=== PATIENT | female | born 1970 | race Caucasian/White ===

== ENCOUNTER 2020-11-10 09:13 | Emergency (ER) | payer OTHER, SELFPAY ==
[2020-11-10 09:24] VITALS: BP 143/93; PULSE 73; RESP 16; TEMP 36.7; O2SAT 99
--- NOTE | 2020-11-10 09:36 | ED.EYEPROB ---
HPI - Eye Problem General Chief complaint: Eye Problems Stated complaint: Left Eye Pain Time Seen by Provider: 11/10/20 09:45 Source: patient Mode of arrival: ambulatory Limitations: no limitations History of Present Illness HPI Narrative: Pastora Zavala is a 50 yo female with no PMH who comes to [facility] with pain in her left eye that started yesterday. She states that she had some swelling in her eyelid she says she is getting a stye but pain increased dramatically over the the last evening this morning is unable to open her eye in any kind of light, she states she took a shower in the dark, and has difficulty driving to work even with sunglasses this morning, watering profusely Related Data Allergies Allergy/AdvReac Type Severity Reaction Status Date / Time No Known Allergies Allergy Unknown Verified 01/18/15 10:21 Review of Systems Review of Systems: CONSTITUTIONAL: Denies fever, chills, sweats. EYES: Denies visual changes, redness, discharge. ENT: Denies rhinorrhea, congestion, sore throat, otalgia. Left eye pain and eyes watering CARDIOVASCULAR: Denies chest pain, palpitations, edema. RESPIRATORY: Denies dyspnea, wheezing, cough GASTROINTESTINAL: Denies abdominal pain, nausea, vomiting, diarrhea. GENITOURINARY: Denies dysuria, hematuria, abnormal discharge SKIN: Denies rash or itching. NEUROLOGIC: Denies numbness, or focal weakness. PSYCHIATRIC: Denies anxiety or depression. PMFSH Past Medical History Medical History No acute medical problems Family History Family History (Updated 11/10/20 @ 09:47 by Georgiana Arora CNP) Other No acute medical problems Social History Social History (Updated 11/10/20 @ 09:48 by Georgiana Arora CNP) Smoking status: Never smoker Alcohol intake: current Comments At time of signature, I agree with nursing past medical, surgical, social and family history. There is no relevant family history pertinent to the presenting complaint. The patient's blood pressure is elevated due to pain today in the clinic Course Course Emergency Course: GENERAL: This is a well-nourished, well-developed patient, in moderate distress. HEAD: normocephalic, atraumatic. EYES: Sclera clear/white on right on left is injected and watering. Vision is grossly intact. EARS: External ears normal,. Hearing grossly intact. NOSE: External nose normal without nasal discharge, nares without redness, no rhinorrhea. THROAT: Mucous membranes moist, NECK: Neck supple, CARDIOVASCULAR: Regular rate and rhythm without murmurs, gallops, or rubs. RESPIRATORY: Clear to auscultation. Breath sounds equal bilaterally. No wheezes, rales, or rhonchi. GASTROINTESTINAL: Abdomen soft, SKIN: warm, intact with no suspicious lesions or rash, good texture and turgor. NEURO: awake, alert, and oriented to person, place and time. There were no obvious focal neurologic abnormalities. Steady gait EXTREMITIES: Normal range of motion. BACK: Nontender without deformity Vital Signs Vital signs: Vital Signs Temperature 98.1 F 11/10/20 09:24 Pulse Rate 73 11/10/20 09:24 Respiratory Rate 16 11/10/20 09:24 Blood Pressure 143/93 H 11/10/20 09:24 Pulse Oximetry 99 11/10/20 09:24 Temperature 98.1 F 11/10/20 09:24 Pulse Rate 73 11/10/20 09:24 Respiratory Rate 16 11/10/20 09:24 Blood Pressure 143/93 H 11/10/20 09:24 Pulse Oximetry 99 11/10/20 09:24 Procedures Other Procedure Procedure 1: Other Procedure: Wood lamp exam -put 3 drops of tetracaine and eye along withFluorescein stain of the L eye was performed with uptake of dye. .Abrasion on upper inner canthus NO FB, ulcer or dendritic lesions. Upper lid was everted and nolesions were noted.. Normal saline irrigation eye solution was performed and the patient tolerated the procedure well, no adverse reaction or complications. MDM - Eye Problem Differential Diagnosis Diffe
== END 2020-11-10 10:07 | disposition home or self-care (01) ==
PROVIDERS: Emergency Provider Nurse Practitioner; PCP Family Medicine Adolescent Medicine
DX: S05.02XA Injury of conjunctiva and corneal abrasion without foreign body, left eye, initial encounter (principal); X58.XXXA Exposure to other specified factors, initial encounter
CPT/HCPCS: 99213; A9270; G0463

== ENCOUNTER 2021-11-10 10:20 | Outpatient (CLI) | payer OTHER, SELFPAY ==
--- NOTE | ~2021-11-10 | MM_ITS ---
EXAMINATION: MM screening [facility] BI w paresh HISTORY: Screening mammogram TECHNIQUE: Craniocaudal and mediolateral oblique 3-D tomosynthesis images were obtained and synthetic 2-D images were generated. CAD analysis was submitted and interpreted. COMPARISON: 05/08/2013, 08/27/2012 BREAST PARENCHYMAL COMPOSITION: The breasts are heterogeneously dense, which may obscure small masses . FINDINGS: There is no suspicious mass, calcification, or architectural distortion to suggest malignan cy in either breast. There has been no suspicious interval change. IMPRESSION: 1. No mammographic evidence of malignancy. 2. Recommend routine screening mammography in one year. BI-RADS Category 1: Negative Reviewed, dictated and finalized at location A.
== END 2021-11-10 10:21 | disposition home or self-care (01) ==
LOC: ANHIMG 10:21
PROVIDERS: PCP Family Medicine Adolescent Medicine; Visit Provider Obstetrics & Gynecology
DX: Z12.31 Encounter for screening mammogram for malignant neoplasm of breast (principal)
CPT/HCPCS: 77063; 77067

== ENCOUNTER 2023-02-15 14:02 | Emergency (ER) | payer OTHER, SELFPAY ==
--- NOTE | ~2023-02-15 | XR_ITS ---
EXAMINATION: XR wrist LT min 3V DATE: 02/15/2023 16:56 INDICATION: Left wrist pain TECHNIQUE: Posteroanterior, ulnar deviation, oblique, and lateral views of the left wrist were obtain ed. COMPARISON: None available FINDINGS: Bone alignment is normal. There is no fracture. Soft tissues are unremarkable. IMPRESSION: 1. No acute osseous abnormality. Reviewed, dictated and finalized at location B. R POLARIZER
--- NOTE | ~2023-02-15 | CT_ITS ---
EXAMINATION: CT brain wo con INDICATION: Headache COMPARISON: None TECHNIQUE: Standard unenhanced head CT. The dose-length product (DLP) was 529.67 mGy-cm. The mA was a djusted according to patient size. Iterative reconstruction technique was employed. FINDINGS: No intracranial hemorrhage, acute infarction, or abnormal mass lesion. The ventricles are n ormal. No abnormal mass effect or midline shift. The garner-white matter differentiation is normal. The basal cisterns are patent. The orbits are normal. The paranasal sinuses, mastoids and calvarium are normal. IMPRESSION: 1. No acute intracranial abnormality. Reviewed, dictated and finalized at location B. NG TECHNICIAN
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
[2023-02-15 14:30] VITALS: BP 152/83; PULSE 84; RESP 18; TEMP 36.8; O2SAT 96
[2023-02-15] MEDS: IBUPROFEN 400 MG TABLET 800 MG PO (17:26)
[2023-02-15] MEDS: CYCLOBENZAPRINE HCL 10 MG TABLET PO (17:26)
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
[2023-02-15] MEDS: LIDOCAINE 5% PATCH 1 PATCH TRANSDERM (18:22)
[2023-02-15] MEDS: HYDROcodone/acetaminophen (*CRX) 5-325 MG TABLET 1 TAB PO (18:22)
== END 2023-02-15 18:25 | disposition home or self-care (01) ==
PROVIDERS: Emergency Provider Physician Assistant; PCP Family Medicine Adolescent Medicine
DX: S16.1XXA Strain of muscle, fascia and tendon at neck level, initial encounter (principal); S39.012A Strain of muscle, fascia and tendon of lower back, initial encounter; S66.912A Strain of unspecified muscle, fascia and tendon at wrist and hand level, left hand, initial encounter; E07.89 Other specified disorders of thyroid; N20.0 Calculus of kidney; M47.812 Spondylosis without myelopathy or radiculopathy, cervical region; M47.816 Spondylosis without myelopathy or radiculopathy, lumbar region; V43.52XA Car driver injured in collision with other type car in traffic accident, initial encounter
CPT/HCPCS: 70450; 72125; 72131; 73110; 99284; A9270

== ENCOUNTER 2023-02-22 16:06 | Outpatient (CLI) | payer OTHER, SELFPAY ==
--- NOTE | ~2023-02-22 | US_ITS ---
EXAMINATION: US thyroid DATE: 02/22/2023 16:24 INDICATION: Left thyroid nodule. TECHNIQUE: Multiple ultrasound images of the thyroid were obtained. COMPARISON: CT cervical spine 02/15/2023 FINDINGS: The right thyroid lobe measures 4.3 x 1.5 x 1.1 cm. The left thyroid lobe measures 4.8 x 2.6 x 1.6 c m. In the left thyroid lobe, there is a 2.3 cm solid, hypoechoic, wider than tall nodule with smooth margin without echogenic foci (TI-RADS TR4). IMPRESSION: 1. Left thyroid nodule. Ultrasound-guided fine-needle aspiration is recommended. Reviewed, dictated and finalized at location E. SHARPENER OPERATOR IMPRESSION: 1. Left thyroid nodule. Ultrasound-guided fine-needle aspiration is recommended .
== END 2023-02-22 16:07 ==
PROVIDERS: PCP Family Medicine Adolescent Medicine; Visit Provider Family Medicine Adolescent Medicine
DX: E04.1 Nontoxic single thyroid nodule (principal)
CPT/HCPCS: 76536

== ENCOUNTER 2023-03-26 12:34 | Outpatient (CLI) | payer OTHER, SELFPAY ==
--- NOTE | ~2023-03-26 | US_ITS ---
EXAMINATION: US FNA w image guidance, US FNA additional DATE: 03/26/2023 14:02 INDICATION: Nontoxic single thyroid nodule TECHNIQUE: Chronic Condition Nurse ultrasound was obtained and an additional left thyroid nodule meeting criteria for biopsy was i dentified at the upper pole. Patient was given the option to biopsy only the newly identified higher grade nodule or to biopsy both thyroid nodule as well as the previous noted TI RADS 4 nodule in the l ower left thyroid. The patient elected to proceed with biopsy of both nodules. A time-out was perfo rmed to verify the patient's name, date of , and procedure to be performed. The procedure and it s benefits and risks were discussed with the patient. Risks specifically discussed included bleeding and infection. The patient understood the risks and agreed to proceed. The neck was prepped and drape d in the usual sterile manner. 5 mL 1% lidocaine was used for local anesthesia. Attention was first turned to the more cephalad nodule. 7 passes were made with a 25G needle into the lesion. Attention w as then turned to the more caudal nodule. 6 additional passes were made with a 25G needle into the le david. Appropriate needle location was documented with continuous sonographic guidance. A sterile ban dage was applied. There were no immediate complications. FINDINGS: Images redemonstrate a 2.4 cm solid hypoechoic TI RADS 4 nodule in the inferior left thyroid. In elisabeth tion a 1.9 cm solid mildly hypoechoic nodule with smooth margins and with punctate echogenic foci (TI -RADS 5, highly suspicious , FNA if >=1.0 cm, annual followup is >0.5 cm) is identified in the upper pole of the left thyroid. Subsequent images demonstrate biopsy needles advanced into each of these no dules. IMPRESSION: 1. Successful ultrasound-guided fine needle aspiration of a 1.9 cm TI RADS 5 nodule in the superior left thyroid. 2. Successful ultrasound-guided fine-needle aspiration of a 2.4 cm TI RADS 4 nodule in the inferior l eft thyroid. Reviewed, dictated and finalized at location A. D MARKETING TEAM LEADER IMPRESSION: 1. Successful ultrasound-guided fine needle aspiration of a 1.9 cm TI RADS 5 n odule in the superior left thyroid. 2. Successful ultrasound-guided fine-needle aspiration of a 2.4 cm TI RADS 4 no dule in the inferior left thyroid.
== END 2023-03-26 12:35 | disposition home or self-care (01) ==
LOC: ANHIMG 12:34
PROVIDERS: PCP Family Medicine Adolescent Medicine; Visit Provider Family Medicine Adolescent Medicine
DX: E04.1 Nontoxic single thyroid nodule (principal)
CPT/HCPCS: 10005; 10006; 88172; 88173; 88305

== ENCOUNTER 2023-05-21 16:48 | Outpatient (CLI) | payer OTHER, SELFPAY ==
--- NOTE | ~2023-05-21 | MM_ITS ---
EXAMINATION: MM screening des BI w paresh HISTORY: Screening TECHNIQUE: Craniocaudal and mediolateral oblique 3-D tomosynthesis images were obtained and synthetic 2-D images were generated. CAD analysis was submitted and interpreted. COMPARISON: 11/10/2021 BREAST PARENCHYMAL COMPOSITION: Not dense: There are scattered areas of fibroglandular density. FINDINGS: There are new nodular asymmetry centrally in the right breast on CC view. The left breast i s stable without evidence for malignancy. IMPRESSION: 1. New nodular asymmetries of the right breast. 2. Additional mammographic views and possible breast ultrasound are recommended. BI-RADS Category 0: Incomplete: Needs additional imaging evaluation. Reviewed, dictated and finalized at location A. IMPRESSION: 1. New nodular asymmetries of the right breast. 2. Additional mammographic views and possible breast ultrasound are recommended . BI-RADS Category 0: Incomplete: Needs additional imaging evaluation.
== END 2023-05-21 16:49 | disposition home or self-care (01) ==
PROVIDERS: PCP Family Medicine Adolescent Medicine; Visit Provider Obstetrics & Gynecology
DX: Z12.31 Encounter for screening mammogram for malignant neoplasm of breast (principal); R92.8 Other abnormal and inconclusive findings on diagnostic imaging of breast
CPT/HCPCS: 77063; 77067

== ENCOUNTER 2023-07-04 11:20 | Outpatient (CLI) | payer OTHER, SELFPAY ==
--- NOTE | ~2023-07-04 | MMUS_ITS ---
EXAMINATION: MM diagnostic des RT w paresh, US breast RT complete HISTORY: New nodular asymmetry in the central right breast on screening craniocaudal view of May 21, 2023 TECHNIQUE: Additional 3-D tomosynthesis images of the right breast were performed and synthetic 2-D i mages were generated. CAD analysis was submitted and interpreted. High resolution complete right reymundo st ultrasound examination including all 4 quadrants and subareolar area was performed. COMPARISON: May 21, 2023 bilateral screening mammogram November 10, 2021 bilateral screening mammogram May 08, 2013 bilateral screening mammogram and bilateral breast ultrasound examination FINDINGS: MAMMOGRAPHIC FINDINGS: No suspicious mass, architectural distortion, malignant calcification, skin thickening or retraction is evident. ULTRASOUND: 2:00 4 cm from nipple: Circumscribed 3.5 x 7.3 x 2.7 mm hypoechoic lesion without internal vascularit y or posterior shadowing, probably benign 9:00 3 cm from nipple: 5.3 x 3 x 3.6 mm cyst No suspicious shadowing or mass is noted otherwise. IMPRESSION: 1. Probably benign findings 2. Six-month diagnostic right mammogram and right breast ultrasound follow-up are recommended BI-RADS category 3, probably benign findings. Reviewed, dictated and finalized at location B. IMPRESSION: 1. Probably benign findings 2. Six-month diagnostic right mammogram and right breast ultrasound follow-up a re recommended BI-RADS category 3, probably benign findings.
== END 2023-07-04 11:21 | disposition home or self-care (01) ==
LOC: ANHIMG 11:21
PROVIDERS: PCP Family Medicine Adolescent Medicine; Visit Provider Obstetrics & Gynecology
DX: R92.8 Other abnormal and inconclusive findings on diagnostic imaging of breast (principal)
CPT/HCPCS: 76641; 77061; 77065; G0279

== ENCOUNTER 2024-07-06 09:15 | Outpatient (CLI) | payer OTHER, SELFPAY ==
--- NOTE | ~2024-07-06 | MM_ITS ---
EXAMINATION: MM screening des BI w paresh HISTORY: Screening TECHNIQUE: Craniocaudal and mediolateral oblique 3-D tomosynthesis images were obtained and synthetic 2-D images were generated. CAD analysis was submitted and interpreted. COMPARISON: Comparison to multiple prior studies sequentially, with oldest reviewed study dated 11/10. BREAST PARENCHYMAL COMPOSITION: Not dense: There are scattered areas of fibroglandular density. FINDINGS: There is no evidence of suspicious mass, calcification, or architectural distortion to sugg est malignancy in either breast. There has been no suspicious interval change. IMPRESSION: 1. No mammographic evidence of malignancy. 2. Recommend routine screening mammography in one year. BI-RADS Category 1: Negative Reviewed, dictated and finalized at location B.
--- OUTSIDE RECORDS SUMMARY | 2024-07-06 09:38 | XMS_ITS | Referral Summary ---
Author Organization [facility] Address [address] [place] [address] Care Team Providers Care Water Quality Assistant Name Role Phone Luis A Garcia MD Primary Care Prov ider Allergies No known active allergies Medications MULTIVITAMIN ORAL Take 1 tablet by mouth every morning Active docusate sodium (COLACE) 100 mg capsuleIndications :constipation Take 1 capsule (100 mg total) by mouth 2 (two) times a day as needed for constipation 20 capsule 08/01/19 24 Active ondansetron ODT (ZOFRAN-ODT) 4 mg disintegrating tabletIndications: Nausea and Vomiting Take 1 tablet (4 mg total) by mouth every 6 (six) hours as needed for nausea or vomiting 20 tablet 08/01/19 24 Active oxyCODONE (ROXICODONE) 5 mg immediate release tabletIndications: Pain Take 1 tablet (5 mg total) by mouth every 4 (four) hours as needed for pain 10 tablet 08/01/19 24 Active Active Problems Problem Noted Date Diagnosed Date Multiple thyroid nodules 06/10/2023 Social History Tobacco Use Types Packs/Day Years Used Date Smoking Tobacco: Never Smokeless Tobacco: Never Tobacco Cessation:Counseling Given: Not Answered AUDIT-C Answer Date Recorded Q1: How often do you have a drink containing alc ohol? 2-4 times a month 07/31/2023 Q2: How many drinks containi ng alcohol do you have on a typical day when you are drinking? 3 or 4 07/31/2023 Q3: How often do you have si x or more drinks on one occasion? Never 07/31/2023 Personal Safety Answer Date Recorded Have you ever been in or are you currently in a harmful physical or emotional relationship or is someone making you feel afraid or unsafe? Denies 07/31/2023 Comments No Sex and Gender Information Value Date Recorded Sex Assigned at Not on file Legal Sex Female 9:09 AM SCISSORS SHARPENER Gender Identity Female 04/19/2023 8:55 AM SCISSORS SHARPENER Sexual Orientation Straight 04/19/2023 8: 55 AM SCISSORS SHARPENER Last Filed Vital Signs Vital Sign Reading Time Taken Comments Blood Pressure 143/68 08/01/2023 8:30 AM CDT Pulse 89 08/01/2023 3:13 AM CDT Temperature 36.8 C (98.2 F) 08/01/2023 8:30 AM CDT Respiratory Rate 16 08/01/2023 8:30 AM CDT Oxygen Saturation 99% 08/01/2023 8:30 AM CDT Inhaled Oxygen Concentration - - Weight 99.8 kg (220 lb) 08/16/2023 12:47 PM CDT Height 154.9 cm (5' 1 ) 08/16/2023 12:47 PM CDT Body Mass Index 41.57 08/16/2023 12:47 PM CDT Plan of Treatment Not on file Insurance [employer] OPEN ACCESS [employer] OPEN ACCESS Advance Directives For more information, please contact: [phone] * Full Code (Latest Code Status on File) Date Activated Date Inactivated Comments 07/31/2023 5:29 PM 08/01/2023 3:21 PM Care Teams Water Quality Assistant Relationship Specialty Start Date End Date Luis A Garcia MD [address] [place] [address] PCP - General Family Medicine 03/29/23
--- OUTSIDE RECORDS SUMMARY | 2024-07-06 09:38 | XMS_ITS | Clinical Summary ---
Author Organization [facility] Address [address] [place] [address] Care Team Providers Care Oil Truck Driver Name Role Phone Luis A Garcia MD [...] Date Diagnosed Date Multiple thyroid nodules 06/10/2023 Surgical History Surgery Date Site/Laterality Comments BIOPSY 02/18/2023 - 02/18/2024 thyroid TUBAL LIGATION 02/18/2013 - 02/17/2014 x2 COLONOSCOPY Family History Medical History Relation Name Comments Brain cancer Mother Lung cancer Mother Anesthesia problems Neg Hx Relation Name Status Comments Mother Social History Tobacco Use Types Packs/Day Years [...] on file Legal Sex Female 9:09 AM SURVIVAL EQUIPMENT REPAIRER Gender Identity Female 04/19/2023 8:55 AM SURVIVAL EQUIPMENT REPAIRER Sexual Orientation Straight 04/19/2023 8: 55 AM SURVIVAL EQUIPMENT REPAIRER Obstetrics History Last Filed Vital Signs Vital Sign Reading [...] 08/16/2023 12:47 PM CDT Plan of Treatment Health Maintenance Due Date Last Done Comments Breast Cancer Screening-Mammogram 1971 Cervical Cancer Screening 1971 Colon Cancer Screening-Colonoscopy 1971 Depression Screening 1971 Hepatitis C Screening 1971 DTaP/Tdap/Td Vaccine (1 - Tdap) 07/18/1982 Hepatitis B Screening 07/18/1989 Regular Well Visit/Exam 18-64 07/18/1989 Zoster Vaccine (1 of 2) 07/18/2021 Influenza Vaccine (Season Ended) 2024 Pneumococcal vaccine <65 Aged Out No longer eligible based on patient's age to complete this topic Insurance [employer] OPEN ACCESS [employer] OPEN ACCESS Advance Directives For more information, please contact: [phone] * Full Code (Latest Code Status on File) Date Activated Date Inactivated Comments 07/31/2023 5:29 PM 08/01/2023 3:21 PM Care Teams Oil Truck Driver Relationship Specialty Start Date End Date Luis A Garcia MD [address] [place] [id number] PCP - General Family Medicine 03/29/23
--- OUTSIDE RECORDS SUMMARY | 2024-07-06 09:38 | XMS_ITS | Clinical Summary ---
Author Organization [facility] Address [address] [place] [id number] Care Team Providers Care Sustainable Design Consultant Name Role Phone Unavailable Primary Care Provider Unavailabl e Social History Tobacco Use Types Packs/Day Years Used Date Smoking Tobacco: Never Assessed Comments Unknown Sex and Gender Information Value Date Recorded Sex Assigned at Not on file Legal Sex Female 7:13 PM CDT Gender Identity Not on file Sexual Orientation Not on file Plan of Treatment Health Maintenance Due Date Last Done Comments Cervical Cancer Screening Pa p Smear (Age 30 to 64) Every 3 Years 1971 Colorectal Cancer Screening Colonoscopy (10 Years) 1971 Annual Physical 07/18/1974 Hepatitis C 07/18/1989 DTaP, Tdap and Td Vaccines ( 1 - Tdap) 07/18/1990 Hepatitis B Vaccines (1 of 3 - 19+ 3-dose series) 07/18/1990 Cervical Cancer Screening Pa p with HPV Testing (Age 30 to 64) Every 5 Years 07/18/2001 Cervical Cancer Screening with HPV 07/18/2001 Mammogram Screening 2011 Pneumococcal Vaccine: 50+ Ye ars (1 of 1 - PCV) 07/18/2021 Zoster Vaccines (1 of 2) 07/18/2021 COVID-19 Vaccine (2023-2 5 season) 2023 Meningococcal B Vaccine Aged Out No l onger eligible based on patient's age to complete this topic Meningococcal Vaccine Aged Out No ana jaime eligible based on patient's age to complete this topic RSV Immunizations Under 20 Months Aged Out No longer eligible based on patient's age to complete this topic
== END 2024-07-06 09:16 | disposition home or self-care (01) ==
LOC: ANHIMG 09:18
PROVIDERS: PCP Family Medicine Adolescent Medicine; Visit Provider Obstetrics & Gynecology
DX: Z12.31 Encounter for screening mammogram for malignant neoplasm of breast (principal)
CPT/HCPCS: 77063; 77067